=== PATIENT | male | born 1955 | race Caucasian/White ===

== ENCOUNTER → 2020-08-26 | Outpatient (CLI) | payer BC ==
[~2020-08-26] MED LIST: ALEN70TA60 PO; AMLO-187 PO; CELE200C PO; DOCU-153 PO; ESOM20CA PO; GABA-585 PO; HYDR12.575 PO; METH750T2 PO; OLME1TAB81 PO; TEST200V3 IM
--- NOTE | 2020-08-26 13:48 | EKG ---
[facility] [address] [place] [address] Test Date: 2020-08-26 Test Time: 13:35:03 Pat Name: STEPHEN VAZQUEZ Department: Room: Gender: Mainframe Applications Developer: [email or web address] Rivas : [id number] Requested By: GOVIND JOHNSON Order Number: [id number] Reading MD: Julio Esquivel MD Measurements Intervals [place] Rate: 73 P: 21 WI: 166 QRS: 44 QRSD: 104 T: 11 QT: 358 QTc: 398 Interpretive Statements SINUS RHYTHM Electronically Signed On 08-28-2020 8:28:01 CDT by Julio Esquivel MD
[2020-08-26 15:56] LABS: BASO % 0 % (0-3); EOS % 1 % (0-3); HEMATOCRIT 44.5 % (39.0-53.0); HEMOGLOBIN 14.9 g/dL (13.0-17.5); LYMPH # 0.9 x10^3/uL (1.0-4.8); LYMPH % 15 % (24-48); MEAN CORPUSCULAR HEMOGLOBIN 30 pg (25-35); MEAN CORPUSCULAR HGB CONC 33 g/dL (31-37); MEAN CORPUSCULAR VOLUME 88 fL (79-100); MONO # 0.6 x10^3/uL (0.0-1.1); MONO % 10 % (0-9); NEUT # 4.6 x10^3/uL (1.8-7.7); NEUT % 75 % (31-73); PLATELET COUNT 231 x10^3/uL (140-400); RED BLOOD COUNT 5.05 x10^6/uL (4.30-5.70); RED CELL DISTRIBUTION WIDTH 14.8 % (11.5-14.5); WHITE BLOOD COUNT 6.2 x10^3/uL (4.0-11.0)
[2020-08-26 16:14] LABS: PROTHROMBIN TIME PATIENT 13.6 SEC (11.7-14.0)
[2020-08-26 16:17] LABS: ALBUMIN 3.8 g/dL (3.4-5.0); ALBUMIN/GLOBULIN RATIO 1.3 (1.0-1.7); CALCIUM 8.7 mg/dL (8.5-10.1); CREATININE 1.1 mg/dL (0.7-1.3); GFR 67.4; POTASSIUM 4.2 mmol/L (3.5-5.1); TOTAL BILIRUBIN 0.7 mg/dL (0.2-1.0); TOTAL PROTEIN 6.7 g/dL (6.4-8.2)
--- NOTE | 2020-08-27 15:45 | PREOP HP ---
DATE OF SERVICE: 08/29/20 HISTORY OF PRESENT ILLNESS: The patient is a pleasant 65-year-old, who has trouble with low back pain and pain which radiates into both of his lower extremities. He complains of posterior lateral thigh pain as well as some pain in the inguinal regions. The right leg is more involved than the left. The problem has been present for years, but has slowly began to worsen. He says he has a constant 3/10 pain. When he sits, the pain is about 6/10. He feels walking tends to help him. He takes Celebrex and gabapentin. He has had chiropractic treatment for years, which used to help, but is no longer effective. PAST MEDICAL HISTORY: Arthritis, artificial joint, osteoporosis, hypertension. PAST SURGICAL HISTORY: Left leg surgery in 1974, left knee replacement in 2013, right hip replacement 2019. FAMILY HISTORY: Hypertension. SOCIAL HISTORY: Retired. . Denies substance abuse. Former smoker. Former alcohol drinker. Drinks soda and tea daily. Walks every day. ALLERGIES: PENICILLIN. CURRENT MEDICATIONS: Esomeprazole magnesium, olmesartan medoxomil, gabapentin, testosterone, alendronate sodium. REVIEW OF SYSTEMS: A 12-point review of systems was obtained and is noncontributory except for that mentioned above. PHYSICAL EXAMINATION: NEUROSURGERY EXAMINATION: GENERAL APPEARANCE: Alert, pleasant, no acute distress. HEAD: Normocephalic and atraumatic. SKIN: Warm and dry. MUSCULOSKELETAL: Lumbar paraspinal muscle bulk is normal, restricted range of motion of the lumbar spine, chfw-[id number] tenderness of the lower lumbar spine with palpation, normal range of motion of the lower extremities bilaterally. EXTREMITIES: No clubbing, cyanosis or edema. NEUROLOGIC: Alert and oriented x 3, normal recent and remote memory, strength 5/5 in bilateral lower extremities, sensory was intact to light touch in bilateral lower extremities except for decreased light touch involving the lateral thigh and leg on the right. Reflexes are trace and symmetric in the lower extremities bilaterally, negative straight leg raising bilaterally, normal gait. IMAGING: I reviewed a lumbar MRI scan from 07/17/2020. On that study, there are abnormalities at L4-L5 and L5-S1. At L5-S1, there is a grade 2 anterolisthesis with severe bilateral neural foraminal narrowing. At L4-L5 on the left, there is a large thickened facet with synovial cyst, which projects into the canal along with disc bulge. This is associated with lateral recess and foraminal narrowing on that side. ASSESSMENT/ PLAN: He has significant problems with his lower back. He has significant listhesis at L5-S1, combined with severe neural foraminal narrowing bilaterally combined with hypertrophic facet disease and disc bulging at L4-L5. I am recommending bilateral foraminal decompression at L5-S1, combined with decompressing the left side at L4-L5. I would combine this with posterior screw and aiden construct L4, L5 and S1, combined with posterolateral fusion. I discussed all this with him. I did outline the risk of surgery including use of pedicle screws. I spoke about the expected postoperative course. He understands. He would like to proceed. He failed to improve with lumbar epidural steroid injection. GOVIND JOHNSON MD DR: MIS/ld JOB#: [id number] / [id number] EYA
== END ==
LOC: SURGPAT 13:37
PROVIDERS: ATTEND Neurological Surgery
DX: Z01.812 Encounter for preprocedural laboratory examination (principal); I10 Essential (primary) hypertension; Z20.828 Contact with and (suspected) exposure to other viral communicable diseases
CPT/HCPCS: 80053; 82306; 85025; 85610; 85730; 87641; 93005; U0003

== ENCOUNTER 2020-08-29 06:09 | Inpatient (IN) | payer BC ==
[~2020-08-29] VITALS: Ht 185.4 cm; Wt 94.3 kg
[2020-08-29] VITALS (8 sets, daily range): BP systolic 105–131; BP diastolic 67–79
[~2020-08-29 06:09] MED LIST changes: +BACITRACIN 50,000 UNIT in IV NORMAL SALINE 1000ML BAG 1,000 ML IRR ONE; -DOCU-153 PO; -METH750T2 PO
[2020-08-29] MEDS ORDERED: ONDANSETRON PF 4 MG/2 ML VIAL. IV PRN (07:00)
[2020-08-29] MEDS ORDERED: LIDOCAINE 1% PF 2 ML VIAL. ID PRN (07:00)
[2020-08-29] MEDS ORDERED: HYDROmorphone 2 MG/ML VIAL IV PRN (07:00)
[2020-08-29] MEDS ORDERED: fentaNYL PF VIAL 100 MCG/2 ML VIAL IV PRN (07:00)
[2020-08-29] MEDS ORDERED: IV RINGERS,LACTATED 1000ML 1,000 ML IV SCH (07:00)
[2020-08-29] MEDS ORDERED: PROCHLORPERAZINE 10 MG/2 ML VIAL. IV PRN (07:00)
[2020-08-29] MEDS ORDERED: VANCOMYCIN 1GM IVPB FOR OMNI 250 ML IV PRN (07:00)
[2020-08-29] MEDS ORDERED: LIDOCAINE 1%/EPI 1:100,000 20 ML VIAL. ONE (07:19)
[2020-08-29] MEDS ORDERED: THROMBIN TOPICAL 20,000 UNIT SPRAY.SYRN KIT TP ONE (07:19)
[2020-08-29] MEDS ORDERED: KETOROLAC 60 MG/2 ML VIAL. ONE (07:19)
[2020-08-29] MEDS ORDERED: GELATIN SPONGE SIZE 100. ONE (07:19)
[2020-08-29] MEDS ORDERED: VANCOMYCIN 1GM IVPB FOR OMNI. ONE (08:00)
[2020-08-29] MEDS ORDERED: MIDAZOLAM HCL/PF 2 MG/2 ML VIAL. ONE (08:11)
[2020-08-29] MEDS ORDERED: DEXAMETHASONE SOD PHOS 20 MG/5 ML VIAL. ONE (08:11)
[2020-08-29] MEDS ORDERED: SUCCINYLCHOLINE 200 MG/10 ML VIAL. ONE (08:11)
[2020-08-29] MEDS ORDERED: ROCURONIUM 50 MG/5 ML VIAL. ONE (08:11)
[2020-08-29] MEDS ORDERED: ONDANSETRON PF 4 MG/2 ML VIAL. ONE (08:11)
[2020-08-29] MEDS ORDERED: PROPOFOL 0 ML IV ONE (08:11)
[2020-08-29] MEDS ORDERED: PROPOFOL 10 MG/ML (20ML) VIAL. IV ONE (08:11)
[2020-08-29] MEDS ORDERED: LIDOCAINE 2% PF 5 ML VIAL. ONE (08:11)
[2020-08-29] MEDS ORDERED: fentaNYL PF VIAL 100 MCG/2 ML VIAL ONE ×3 (08:12→18:11)
[2020-08-29] MEDS ORDERED: PHENYLEPHRINE 10 MG/ML VIAL. ONE ×2 (08:12→14:57)
[2020-08-29] MEDS ORDERED: REMIFENTANIL 2 MG VIAL. IV ONE ×2 (08:16→12:22)
[2020-08-29] MEDS ORDERED: PROPOFOL 100 ML IV ONE ×2 (08:18→12:03)
--- NOTE | 2020-08-29 09:42 | PREOP HP ---
DATE OF SERVICE: Arthur Orta dictating for Dr. Darrel Johnson. HISTORY OF PRESENT ILLNESS: The patient is a pleasant 65-year-old, who has trouble with low back pain and pain which radiates into both of his lower extremities. He complains of posterior lateral thigh pain as well as some pain in the inguinal regions. The right leg is more involved than the left. The problem has been present for years, but has slowly began to worsen. He says he has a constant 3/10 pain. When he sits, the pain is about 6/10. He feels walking tends to help him. He takes Celebrex and gabapentin. He has had chiropractic treatment for years, which used to help, but is no longer effective. PAST MEDICAL HISTORY: Arthritis, artificial joint, osteoporosis, hypertension. PAST SURGICAL HISTORY: Left leg surgery in 1974, left knee replacement in 2013, right hip replacement 2019. FAMILY HISTORY: Hypertension. SOCIAL HISTORY: Retired. . Denies substance abuse. Former smoker. Former alcohol drinker. Drinks soda and tea daily. Walks every day. ALLERGIES: PENICILLIN. CURRENT MEDICATIONS: Esomeprazole magnesium, olmesartan medoxomil, ____, gabapentin, testosterone, alendronate sodium. REVIEW OF SYSTEMS: A 12-point review of systems was obtained and is noncontributory except for that mentioned above. PHYSICAL EXAMINATION: NEUROSURGERY EXAMINATION: GENERAL APPEARANCE: Alert, pleasant, no acute distress. HEAD: Normocephalic and atraumatic. SKIN: Warm and dry. MUSCULOSKELETAL: Lumbar paraspinal muscle bulk is normal, restricted range of motion of the lumbar spine, esiu-ow-vkwjqzzf tenderness of the lower lumbar spine with palpation, normal range of motion of the lower extremities bilaterally. EXTREMITIES: No clubbing, cyanosis or edema. NEUROLOGIC: Alert and oriented x 3, normal recent and remote memory, strength 5/5 in bilateral lower extremities, sensory was intact to light touch in bilateral lower extremities except for decreased light touch involving the lateral thigh and leg on the right. Reflexes are trace and symmetric in the lower extremities bilaterally, negative straight leg raising bilaterally, normal gait. IMAGING: Reviewed. I reviewed a lumbar MRI scan from 07/17/2020. On that study, there are abnormalities at L4-L5 and L5-S1. At L5-S1, there is a grade 2 anterolisthesis with severe bilateral neural foraminal narrowing. At L4-L5 on the left, there is a large thickened facet with synovial cyst, which projects into the canal along with disk bulge. This is associated with lateral recess and foraminal narrowing on that side. ASSESSMENT: 1. Spondylolisthesis, lumbosacral region. 2. Spinal stenosis, lumbar region with neurogenic claudication. 3. Radiculopathy, lumbar region. 4. Other bursal cyst, unspecified site. PLAN: He has significant problems with his lower back. He has significant listhesis at L5-S1, combined with severe neural foraminal narrowing bilaterally combined with hypertrophic facet disease and disk bulging at L4-L5. I am recommending bilateral foraminal decompression at L5-S1, combined with decompressing the left side at L4-L5. I would combine this with posterior screw and aiden construct L4, L5 and S1, combined with posterolateral fusion. I discussed all this with him. I did outline the risk of surgery including use of pedicle screws. I spoke about the expected postoperative course. He understands. He would like to proceed. We will make the arrangements next week and he will contact us with ____. DARREL JOHNSON MD DR: MIS/ld JOB#: [id number] / [id number]
--- NOTE | 2020-08-29 11:02 | RAD ---
STUDY: CT of lumbar spine without contrast INDICATION: Lumbar stenosis. Brain lab. COMPARISON: None TECHNIQUE: Axial CT imaging of the lumbar spine without contrast per brain lab protocol. Coronal and sagittal reformats were obtained. One or more of the following individualized dose reduction techniques were utilized for this examination: 1. Automated exposure control 2. Adjustment of the mA and/or kV according to patient size 3. Use of iterative reconstruction technique. FINDINGS: There is transitional anatomy at the lumbosacral junction. For the purpose of this report, the level of the spondylolisthesis is labeled L5-S1. There are tiny accessory ribs at L1. No acute fracture. T12-L1 through L3-L4: No significant disc herniation, or canal or foraminal narrowing. Mild facet arthrosis. L4-L5: There is mild canal narrowing at L4-L5 related to small disc bulge and moderate facet arthrosis with ligamentum flavum thickening. Mild left foraminal narrowing. Moderate facet arthrosis.. L5-S1: There are chronic bilateral L5 pars defects with 1.3 cm anterolisthesis of L5 on S1. There is severe disc space narrowing with uncovering of a disc bulge and large posterior osteophytes at L5. There are bulky bridging osteophytes on the left. This results in severe bilateral foraminal narrowing, greater on the right. No canal narrowing. Moderate facet arthrosis. There is degenerative joint disease of the sacroiliac joints, greater on the left. A right hip prosthesis is noted. There is mild calcified aortic atherosclerosis. 1.1 cm exophytic right renal cyst with greater than simple fluid density, indeterminate. IMPRESSION: 1. Chronic bilateral L5 spondylolysis with grade 2 spondylolisthesis, severe degenerative disc disease, and severe bilateral foraminal narrowing at L5-S1. 2. 1.1 cm indeterminate right renal cyst. Ultrasound could be obtained to further evaluate. Electronically signed by: Eunice Noel MD (08/29/2020 10:59 AM) [id number]
[2020-08-29] MEDS ORDERED: DESFLURANE > 120 MINUTES IH ONE (14:15)
[2020-08-29] MEDS ORDERED: REMIFENTANIL 1 MG VIAL. IV ONE (14:56)
[2020-08-29] MEDS ORDERED: PROPOFOL 50 ML IV ONE (16:06)
[2020-08-29] MEDS ORDERED: PHENYLEPHRINE in 0.9% NACL PF 1 MG/10 ML SYRINGE. IV ONE (16:15)
[2020-08-29] MEDS ORDERED: ePHEDrine PF IN SALINE 50 MG/10 ML SYRINGE. IV ONE (16:25)
[2020-08-29] MEDS ORDERED: MAGNESIUM HYDROXIDE 2,400 MG/30 ML ORAL.SUSP. PO PRN (17:30)
[2020-08-29] MEDS ORDERED: diphenhydrAMINE HCL 25 MG CAPSULE PO PRN (17:30)
[2020-08-29] MEDS ORDERED: CALCIUM CARBONATE 500 MG TAB.CHEW PO PRN (17:30)
[2020-08-29] MEDS ORDERED: 0.9 % SODIUM CHLORIDE 10 ML DISP.SYRIN. IV PRN (17:30)
[2020-08-29] MEDS ORDERED: oxyCODONE/APAP 5/325 1 TAB TABLET PO PRN ×2 (17:30)
[2020-08-29] MEDS ORDERED: fentaNYL PF VIAL 100 MCG/2 ML VIAL IVP PRN (17:30)
[2020-08-29] MEDS ORDERED: MAG HYDROX/ALUMINUM HYD/SIMETH 30 ML ORAL.SUSP PO PRN (17:30)
[2020-08-29] MEDS ORDERED: ACETAMINOPHEN 325 MG TABLET. PO PRN (17:30)
[2020-08-29] MEDS ORDERED: ONDANSETRON PF 4 MG/2 ML VIAL. IVP PRN (17:30)
[2020-08-29] MEDS ORDERED: NALOXONE 0.4 MG/ML VIAL. IV PRN (17:30)
[2020-08-29] MEDS ORDERED: METHOCARBAMOL 750 MG TABLET PO PRN (17:30)
[2020-08-29] MEDS: fentaNYL PF VIAL 100 MCG/2 ML VIAL IV PRN ×2 (18:19→18:33)
[2020-08-29] MEDS ORDERED: MORPHINE SULFATE 2 MG/ML VIAL. ONE (18:33)
[2020-08-29] MEDS: MORPHINE SULFATE 2 MG/ML VIAL. IV PRN ×2 (18:36→18:51)
[2020-08-29] MEDS ORDERED: HYDROmorphone 2 MG/ML VIAL ONE (18:55)
--- NOTE | 2020-08-29 19:30 | NUR ---
Admit from PACU s/p lumbar sx and synovial cyst removal. ENRIQUE. 2 surgical dressings D/I.
[2020-08-29] MEDS ORDERED: POTASSIUM CL 20MEQ D5-0.45NACL 1,000 ML IV SCH (20:00)
[2020-08-29] MEDS ORDERED: VANCOMYCIN 1 GM in IV NORMAL SALINE 250ML 250 ML IV ONE (21:30)
[2020-08-29] MEDS: GABAPENTIN 100 MG CAPSULE. PO SCH (21:38)
[2020-08-29] MEDS: DOCUSATE SODIUM 100 MG CAPSULE. PO SCH (21:38)
--- NOTE | 2020-08-30 03:31 | NUR ---
Assisted to BSC, voided 300cc. No further nausea. IVf DC'd. Stood at bedside to ambulate but then declined because "I'm too dizzy." SBP 122. LSO brace order faxed to [facility].
[2020-08-30 03:32] VITALS: BP 122/78
--- NOTE | 2020-08-30 03:34 | NUR ---
C/o "sore and red" area across nipple line and chest. Left pec appears "swollen". Ice pack applied. "It hurts worse than my back." Refuses offered pain meds, "last time the narcotics made me really constipated."
[2020-08-30 06:32] VITALS: BP 115/71
[2020-08-30] MEDS ORDERED: PANTOPRAZOLE 40 MG TABLET.DR. PO SCH (07:30)
[2020-08-30] MEDS: GABAPENTIN 100 MG CAPSULE. PO SCH (07:53)
[2020-08-30] MEDS: DOCUSATE SODIUM 100 MG CAPSULE. PO SCH (07:53)
[2020-08-30] MEDS ORDERED: [UNRECOGNIZED DRUG - OTHER] PO SCH (09:00)
[2020-08-30] MEDS ORDERED: hydroCHLOROthiazide 12.5 MG CAPSULE PO SCH (09:00)
[2020-08-30] MEDS ORDERED: OLMESARTAN PO SCH (09:00)
[2020-08-30] MEDS ORDERED: LOSARTAN POTASSIUM 50 MG TABLET. PO SCH (09:00)
[2020-08-30] MEDS ORDERED: HYDROCHLOROTHIAZIDE PO SCH (09:00)
[2020-08-30 11:16] VITALS: BP 137/87
[2020-08-30] MEDS ORDERED: METH750T2 PO (11:59)
[2020-08-30] MEDS ORDERED: DOCU-153 PO (11:59)
--- NOTE | 2020-08-30 12:02 | DISCH ---
DISCHARGE INSTRUCTIONS Condition on Discharge Condition on Discharge: Stable Activity After Discharge Activity Instructions for Disc: Activity as tolerated, Avoid exertion, Prog ressive ambulation Other activity instructions: no driving for a week Bathing Instructions: Shower-keep dressing dry, No Tub Bath until see Lifting Instructions after Dis: No heavy lifting, No pulling or pushing, Do not lift >10 pounds Exercise Instruction after Dis: Walk 10 min, 3 x per day Weight Bearing Status after Di: Full weight bearing Diet after Discharge Diet after Discharge: Regular Diet Texture: Regular Swallowing Supervision: None needed Wound Incision Care Wound/Incision Care: Ice to area for comfort, Change dressing, May get incision wet Other wound/incision instructi: may remove dressing in 48 hours if incision dry, keep steri strips on Wound Care Equipment: Dressings Follow-Up Follow Up With: F/U with Dr. Johnson's nurse in 10-14 days [phone] Treatment/Equipment after DC Adaptive Equipment Issued: None, Brace/splint GOVIND JOHNSON MD Aug 30, 2020 12:02
--- NOTE | 2020-08-30 12:45 | NUR ---
Discharge instructions given with prescriptions. Answered questions and concerns. Verbalized understanding. Dressings supplies given with instructions. Received LSO brace and is wearing it. Pt discharged home. Escorted out by w/c accompanied by brother.
--- NOTE | 2020-08-30 12:57 | PDOC ---
PROGRESS NOTES Date of Service DATE: 08/30/20 TIME: 12:55 Subjective Subjective POD #1 S/P Lumbar decompression and fusion L4-5, L5-S1 legs feel much better has been ambulating in halls not taking pain medication Objective Objective Vital Signs Date Time Temp Pulse Resp B/P (MAP) Pulse Ox O2 Delivery O2 Flow Rate FiO2 08/30/20 11:16 97.9 101 20 137/87 (104) 96 Room Air 97.9 08/29/20 23:18 3.0 Intake and Output 08/30/20 07:00 Intake Total 6435 ml Output Total 1050 ml Balance 5385 ml Intake Oral 1770 ml IV Total 3950 ml Other 715 ml Output Urine Total 900 ml Stool Total 0 ml Estimated Blood Loss 150 ml Physical Exam General: Alert, Oriented X3, Cooperative, No acute distress MUSCULOSKELETAL: Other (ENRIQUE) Neck: Other Skin: Other (dressing dry and intact, changed) Plan Plan of Care dc home f/u 2 weeks Comment Review of Relevant I have reviewed the following items dalia (where applicable) has been applied. Medications Current Medications Bacitracin 00086 unit/Sodium Chloride 1,000 ml @ 1,000 mls/hr 1X ONCE IRR Last administered on 08/29/20at 10:54; Start 08/29/20 at 06:00; Stop 08/29/20 at 06:59; Status DC Ondansetron HCl (Zofran) 4 mg PRN Q6HRS PRN IV NAUSEA/VOMITING; Start 08/29/20 at 07:00; Stop 08/30/20 at 06:59; Status DC Fentanyl Citrate (Fentanyl 2ml Vial) 25 mcg PRN Q5MIN PRN IV MILD PAIN 1-3 Last administered on 08/29/20at 18:33; Start 08/29/20 at 07:00; Stop 08/30/20 at 06:59; Status DC Fentanyl Citrate (Fentanyl 2ml Vial) 50 mcg PRN Q5MIN PRN IV MODERATE TO SEVERE PAIN Last administered on 08/29/20at 18:25; Start 08/29/20 at 07:00; Stop 08/30/20 at 06:59; Status DC Morphine Sulfate (Morphine Sulfate) 1 mg PRN Q10MIN PRN IV SEVERE PAIN 7-10 Last administered on 08/29/20at 18:51; Start 08/29/20 at 07:00; Stop 08/30/20 at 06:59; Status DC Ringer's Solution 1,000 ml @ 30 mls/hr Q24H IV Last administered on 08/29/20at 07:01; Start 08/29/20 at 07:00; Stop 08/29/20 at 18:59; Status DC Lidocaine HCl (Xylocaine-Mpf 1% 2ml Vial) 2 ml PRN 1X PRN ID PRIOR TO IV START; Start 08/29/20 at 07:00; Stop 08/30/20 at 06:59; Status DC Hydromorphone HCl (Dilaudid) 0.5 mg PRN Q10MIN PRN IV SEV PAIN, Second choice Last administered on 08/29/20at 18:58; Start 08/29/20 at 07:00; Stop 08/30/20 at 06:59; Status DC Prochlorperazine Edisylate (Compazine) 5 mg PACU PRN PRN IV NAUSEA, MRX1; Start 08/29/20 at 07:00; Stop 08/30/20 at 06:59; Status DC Vancomycin HCl 250 ml @ 250 mls/hr PREOP PRN PRN IV PREOP Last administered on 08/29/20at 09:41; Start 08/29/20 at 07:00; Stop 08/30/20 at 12:13; Status DC Gelatin (Gelfoam Size 100) 1 each STK-MED ONCE .ROUTE Last administered on 08/29/20at 10:54; Start 08/29/20 at 07:19; Stop 08/29/20 at 07:19; Status DC Ketorolac Tromethamine (Toradol Im) 60 mg STK-MED ONCE .ROUTE Last administered on 08/29/20at 10:54; Start 08/29/20 at 07:19; Stop 08/29/20 at 07:19; Status DC Lidocaine/ Epinephrine (LIDOCAINE 1%-EPI 1:100,000 Multi-Dose) 20 ml STK-MED ONCE .ROUTE Last administered on 08/29/20at 10:54; Start 08/29/20 at 07:19; Stop 08/29/20 at 07:19; Status DC Thrombin 20,000 unit STK-MED ONCE TP Last administered on 08/29/20at 10:54; Start 08/29/20 at 07:19; Stop 08/29/20 at 07:19; Status DC Propofol (Diprivan) 200 mg STK-MED ONCE IV ; Start 08/29/20 at 08:11; Stop 1 at 08:11; Status DC Dexamethasone Sodium Phosphate (Decadron) 20 mg STK-MED ONCE .ROUTE ; Start 08/29/20 at 08:11; Stop 08/29/20 at 08:11; Status DC Lidocaine HCl (Lidocaine Pf 2% Vial) 5 ml STK-MED ONCE .ROUTE ; Start 08/29/20 at 08:11; Stop 08/29/20 at 08:11; Status DC Ondansetron HCl (Zofran) 4 mg STK-MED ONCE .ROUTE ; Start 08/29/20 at 08:11; Stop 08/29/20 at 08:11; Status DC Propofol 0 ml @ As Directed STK-MED ONCE IV ; Start 08/29/20 at 08:11; Stop 08/29/20 at 08:11; Status DC Succinylcholine Chloride (Anectine) 200 mg STK-MED ONCE .ROUTE ; Start 08/29/20 at 08:11; Stop 08/29/20 at 08:11; Status DC Rocuronium Woodruff (Zemuron) 50 mg STK-MED ONCE .ROUTE ; Start 08/29/20 at 08:11; Stop 08/29/20 at 08:11; Status DC Midazolam HCl (Versed) 2 mg STK-MED ONCE .ROUTE ; Start 08/29/20 at 08:11; Stop 08/29/20 at 08:11; Status DC Phenylephrine HCl (Kendell-Synephrine Inj) 10 mg STK-MED ONCE .ROUTE ; Start 08/29/20 at 08:12; Stop 08/29/20 at 08:12; Status DC Fentanyl Citrate (Fentanyl 2ml Vial) 100 mcg STK-MED ONCE .ROUTE ; Start 08/29/20 at 08:12; Stop 08/29/20 at 08:12; Status DC Remifentanil HCl (Ultiva) 2 mg STK-MED ONCE IV ; Start 08/29/20 at 08:16; Stop 08/29/20 at 08:16; Status DC Propofol 100 ml @ As Directed STK-MED ONCE IV ; Start 08/29/20 at 08:18; Stop 08/29/20 at 08:18; Status DC Vancomycin HCl (VANCO IVPB for OMNICELL) 1 gm STK-MED ONCE .ROUTE ; Start 08/29/20 at 08:00; Stop 08/29/20 at 09:01; Status DC Propofol 100 ml @ As Directed STK-MED ONCE IV ; Start 08/29/20 at 12:03; Stop 08/29/20 at 12:04; Status DC Remifentanil HCl (Ultiva) 2 mg STK-MED ONCE IV ; Start 08/29/20 at 12:22; Stop 08/29/20 at 12:22; Status DC Desflurane (Suprane) 90 ml STK-MED ONCE IH ; Start 08/29/20 at 14:15; Stop 08/29/20 at 14:15; Status DC Remifentanil HCl (Ultiva) 1 mg STK-MED ONCE IV ; Start 08/29/20 at 14:56; Stop 08/29/20 at 14:56; Status DC Phenylephrine HCl (Kendell-Synephrine Inj) 10 mg STK-MED ONCE .ROUTE ; Start 08/29/20 at 14:57; Stop 08/29/20 at 14:57; Status DC Fentanyl Citrate (Fentanyl 2ml Vial) 100 mcg STK-MED ONCE .ROUTE ; Start 08/29/20 at 15:23; Stop 08/29/20 at 15:24; Status DC Propofol 50 ml @ As Directed STK-MED ONCE IV ; Start 08/29/20 at 16:06; Stop 08/29/20 at 16:07; Status DC Phenylephrine HCl (PHENYLEPHRINE in 0.9% NACL PF) 1 mg STK-MED ONCE IV ; Start 08/29/20 at 16:15; Stop 08/29/20 at 16:16; Status DC Ephedrine Sulfate (ePHEDrine PF IN SALINE SYRINGE) 50 mg STK-MED ONCE IV ; Start 08/29/20 at 16:25; Stop 08/29/20 at 16:25; Status DC Gabapentin (Neurontin) 300 mg BID PO Last administered on 08/30/20at 07:53; Start 08/29/20 at 21:00; Stop 08/30/20 at 12:54; Status DC Testosterone Cypionate (Depo-Testosterone) 300 mg Q2WKS IM ; Start 09/12/20 at 09:00; Status UNV Non-Formulary Medication (Alendronate Sodium ) 70 mg WEEKLY PO ; Start 09/05/20 at 09:00; Status UNV Pantoprazole Sodium (Protonix) 40 mg DAILYAC PO Last administered on 08/30/20at 07:53; Start 08/30/20 at 07:30; Stop 08/30/20 at 12:54; Status DC Non-Formulary Medication (Olmesartan/ Hydrochlorothiazide (Olmesartan-Hctz 40- 12.5 mg Tab)) 1 each DAILY PO ; Start 08/30/20 at 09:00; Status UNV Fentanyl Citrate (Fentanyl 2ml Vial) 50 mcg PRN Q2HR PRN IVP PAIN; Start 08/29/20 at 17:30; Stop 08/30/20 at 12:54; Status DC Vancomycin HCl 1 gm/Sodium Chloride 250 ml @ 250 mls/hr 1X ONCE IV Last administered on 08/29/20at 21:38; Start 08/29/20 at 21:30; Stop 08/29/20 at 22:29; Status DC Acetaminophen (Tylenol) 650 mg PRN Q6HRS PRN PO MILD PAIN / TEMP > 100.3'F; Start 08/29/20 at 17:30; Stop 08/30/20 at 12:54; Status DC Al Hydroxide/Mg Hydroxide (Mylanta Plus Xs) 30 ml PRN Q3HRS PRN PO HEARTBURN / GAS; Start 08/29/20 at 17:30; Stop 08/30/20 at 12:54; Status DC Calcium Carbonate/ Glycine (Tums) 500 mg PRN Q3HRS PRN PO INDIGESTION; Start 08/29/20 at 17:30; Stop 08/30/20 at 12:54; Status DC Diphenhydramine HCl (Benadryl) 25 mg PRN Q6HRS PRN PO ITCHING; Start 08/29/20 at 17:30; Stop 08/30/20 at 12:54; Status DC Naloxone HCl (Narcan) 0.1 mg PRN Q2MIN PRN IV SEE COMMENTS; Start 08/29/20 at 17:30; Stop 08/30/20 at 12:54; Status DC Sodium Chloride (Normal Saline Flush) 3 ml QSHIFT PRN IV AFTER MEDS AND BLOOD DRAWS; Start 08/29/20 at 17:30; Stop 08/30/20 at 12:54; Status DC Potassium Chloride/Dextrose/ Sod Cl 1,000 ml @ 75 mls/hr [id number] IV Last administered on 08/29/20at 19:49; Start 08/29/20 at 20:00; Stop 08/30/20 at 12:54; Status DC Oxycodone/ Acetaminophen (Percocet 5/325) 1 tab PRN Q4HRS PRN PO MODERATE PAIN; Start 08/29/20 at 17:30; Stop 08/30/20 at 12:54; Status DC Oxycodone/ Acetaminophen (Percocet 5/325) 2 tab PRN Q4HRS PRN PO SEVERE PAIN; Start 08/29/20 at 17:30; Stop 08/30/20 at 12:54; Status DC Methocarbamol (Robaxin) 750 mg PRN TID PRN PO MUSCLE SPASMS; Start 08/29/20 at 17:30; Stop 08/30/20 at 12:54; Status DC Docusate Sodium (Colace) 100 mg BID PO Last administered on 08/30/20at 07:53; Start 08/29/20 at 21:00; Stop 08/30/20 at 12:54; Status DC Magnesium Hydroxide (Milk Of Magnesia) 2,400 mg PRN Q12HR PRN PO CONSTIPATION; Start 08/29/20 at 17:30; Stop 08/30/20 at 12:54; Status DC Ondansetron HCl (Zofran) 4 mg PRN Q6HRS PRN IVP NAUESA, 1ST CHOICE Last a dministered on 08/29/20at 19:49; Start 08/29/20 at 17:30; Stop 08/30/20 at 12:54; Status DC Losartan Potassium (Cozaar) 100 mg DAILY PO Last administered on 08/30/20at 07:54; Start 08/30/20 at 09:00; Stop 08/30/20 at 12:54; Status DC Hydrochlorothiazide (Microzide) 12.5 mg DAILY PO Last administered on 08/30/20at 07:53; Start 08/30/20 at 09:00; Stop 08/30/20 at 12:54; Status DC Fentanyl Citrate (Fentanyl 2ml Vial) 100 mcg STK-MED ONCE .ROUTE ; Start 08/29/20 at 18:11; Stop 08/29/20 at 18:11; Status DC Morphine Sulfate (Morphine Sulfate) 2 mg STK-MED ONCE .ROUTE ; Start 08/29/20 at 18:33; Stop 08/29/20 at 18:33; Status DC Hydromorphone HCl (Dilaudid) 2 mg STK-MED ONCE .ROUTE ; Start 08/29/20 at 18:55; Stop 08/29/20 at 18:56; Status DC Active Scripts Active Dok (Docusate Sodium) 100 Mg Capsule 100 Mg PO BID Methocarbamol 750 Mg Tablet 750 Mg PO PRN TID PRN Reported Alendronate Sodium 70 Mg Tablet 70 Mg PO WEEKLY Testosterone Cypionate 200 Mg/1 Ml Vial 300 Mg IM Q2WKS Olmesartan-Hctz 40-12.5 mg Tab (Olmesartan/Hydrochlorothiazide) 1 Each Tablet 1 Each PO DAILY Gabapentin (Gabapentin) 100 Mg Capsule 300 Mg PO BID Nexium Capsule (Esomeprazole Magnesium) 20 Mg Capsule.dr 40 Mg PO DAILY Vitals/I & O Vital Sign - Last 24 Hours 08/29/20 08/29/20 08/29/20 08/29/20 17:36 17:50 17:53 18:09 Temp 99.5 99.5 99.5 99.5 99.5 99.5 Pulse 130 121 110 Resp 16 17 20 B/P (MAP) 93/53 90/59 81/49 Pulse Ox 94 94 91 O2 Delivery Simple Mask Mask Simple Mask Nasal Cannula O2 Flow Rate 6 6 6 4 08/29/20 08/29/20 08/29/20 08/29/20 18:19 18:23 18:25 18:33 Temp 99.5 99.5 Pulse 106 Resp 18 20 B/P (MAP) 91/55 Pulse Ox 91 96 91 91 O2 Delivery Nasal Cannula Nasal Cannula Nasal Cannula Nasal Cannula O2 Flow Rate 4.0 4.0 4.0 4.0 08/29/20 08/29/20 08/29/20 08/29/20 18:36 18:38 18:51 18:53 Temp 99.5 99.5 99.5 99.5 Pulse 100 103 Resp 20 20 20 21 B/P (MAP) 88/52 102/63 Pulse Ox 93 91 95 96 O2 Delivery Nasal Cannula Nasal Cannula Simple Mask Simple Mask O2 Flow Rate 4.0 4.0 8.0 8.0 08/29/20 08/29/20 08/29/20 08/29/20 18:58 19:08 19:30 19:45 Temp 97.5 98.6 97.5 98.6 Pulse 105 107 101 Resp 20 20 18 18 B/P (MAP) 99/61 105/69 (81) 111/79 (90) Pulse Ox 95 95 95 96 O2 Delivery Nasal Cannula Nasal Cannula Nasal Cannula Nasal Cannula O2 Flow Rate 8.0 4 4.0 3.0 08/29/20 08/29/20 08/29/20 08/29/20 20:00 20:00 20:15 20:45 Pulse 100 99 101 Resp 18 18 18 B/P (MAP) 112/71 (85) 110/68 (82) 111/67 (82) Pulse Ox 96 96 94 O2 Delivery Nasal Cannula Nasal Cannula Nasal Cannula O2 Flow Rate 4.0 3.0 3.0 3.0 08/29/20 08/29/20 08/29/20 08/30/20 21:15 22:21 23:18 03:32 Temp 99.0 99.0 Pulse 101 95 99 101 Resp 18 18 18 B/P (MAP) 119/77 (91) 131/78 (95) 120/76 (91) 122/78 (93) Pulse Ox 96 92 96 94 O2 Delivery Nasal Cannula Room Air Nasal Cannula Room Air O2 Flow Rate 3.0 3.0 08/30/20 08/30/20 08/30/20 08/30/20 06:32 07:40 07:54 11:16 Temp 98.9 97.9 98.9 97.9 Pulse 103 96 101 Resp 20 B/P (MAP) 115/71 (86) 123/78 137/87 (104) Pulse Ox 92 96 O2 Delivery Room Air Room Air Room Air Intake and Output 08/29/20 08/29/20 08/30/20 15:00 23:00 07:00 Intake Total 4220 ml 2215 ml Output Total 750 ml 300 ml Balance 3470 ml 1915 ml Justifications for Admission Other Justification GOVIND JOHNSON MD Aug 30, 2020 12:57
--- NOTE | 2020-09-02 18:08 | PATHOLOGY ---
[facility] Accession Number: [id number] . 01 Material submitted: . vertebral column - LUMBAR DECOMPRESSION . 01 Clinical history: . LUMBER SYNOVIAL CYST, SPONDYLOLTHESIS STENOSIS . 02 Diagnosis: Segments of fibrocartilaginous, adipose, and skeletal muscle tissue and bone, lumbar decompression: - Degenerative changes of fibrocartilaginous tissue. (JPM:bid manager; 09/02/2020) MBR 09/02/2020 1541 Local . 02 Comment: There is no evidence of an acute inflammatory process or malignancy. (JPM:sofie; 09/02/2020) . 02 Electronically signed: . Chuck Ferrell MD, Pathologist NPI- [id number] . 01 Gross description: . Received in formalin labeled "Rich Ponce, lumbar decompression" is a 6.5 x 5.4 x 1.5 cm aggregate of price-brown and price-white rubbery soft tissue and gritty bone. [employer] Sales Representative tissue is submitted in cassette A1 following decalcification. ([facility] [place]; 09/01/2020) [facility] 09/02/2020 1539 Local . 02 Pathologist provided ICD-10: M71.38, M48.00 . 02 CPT . 946335, [id number] Specimen Comment: A courtesy copy of this report has been sent to [phone], [phone] Specimen Comment: [id number] Specimen Comment: Report sent to DR JOHNSON / DR JAMES Performed at: 01 [facility] [address], [place], [place] [id number] MD Nik Pike MD Phone: [phone] Performed at: 02 [facility] [address], [place] [id number] MD Chuck Ferrell MD Phone: [phone]
--- NOTE | 2020-09-03 16:34 | OP ---
DATE OF SURGERY: 08/29/2020 PREOPERATIVE DIAGNOSES: 1. Spondylolisthesis, grade 2, L5-S1 with foraminal and lateral recess narrowing bilaterally. 2. Hypertrophic facet with synovial cyst projecting into the canal with lateral recess narrowing and foraminal narrowing L4-L5, left. OPERATION PERFORMED: 1. Bilateral hemilaminotomy with decompression of dura and nerve root extending into the foramen, L5-S1. 2. Left hemilaminotomy with decompression of dura and nerve root, L4-L5. The surgery was then combined with posterior instrumentation L4, L5, S1; posterolateral fusion, L4, L5, S1. STRIPE MATCHER: GEORGE Dutta assisted with all aspects of the surgery. The surgery was done with bone marrow aspiration, fluoroscopy, microscopic dissection, BrainLAB guidance as well as multimodality neurophysiologic monitoring. OPERATIVE INDICATIONS: The patient is a pleasant 65-year-old man who developed intractable back and bilateral leg pain, the right side is more involved than the left with regard to his pain. He failed conservative measures and had the above-mentioned findings on imaging studies. I recommended lumbar surgery. I spoke with him about the surgery, the risks, the technique and the expected postoperative course, and he wished to go ahead. DESCRIPTION OF PROCEDURE: Following general endotracheal anesthesia, the patient was positioned prone on the Ariel table. Lumbar region prepped and draped in standard fashion. DRU hose and AV impulse boots were applied for DVT prophylaxis. The microscope was draped. Fluoroscopy was draped and brought into the field. Monitoring was established. Vancomycin 1 gram was given less than 1 hour prior to initiation of the surgery. The pins were placed into the left iliac crest and the BrainLAB system was initialized. I then made a midline incision extending from upper L4 to inferior S1. I dissected down through skin and subcutaneous tissue, reflected the paraspinal muscles and then beginning on the left side, I brought in the microscope and drilled generous laminotomies extending out to the proximal foramen and performed partial foraminotomies at L4 and L5. I trimmed away very thickened ligamentum flavum and fully decompressed the dura and exiting root. At this time, using anatomic landmarks as well as BrainLAB system, drilled into the posterior aspect of the pedicles of L4, L5 and S1, sounded down with the black ball and ball tip probe using stimulated EMG monitoring followed by tap. I did excoriate the transverse processes and lateral facets and aspirated 20 mL of bone marrow from the left iliac crest and mixing this with allograft bone, packed this into the gutter. I then placed pedicle screws of 6.5 using the Republic system. Following this, then I placed the aiden and nuts and this did not torque the system. I went to the right side then and in a similar fashion, exposed L4, L5 and S1. I did lay fusion bone in the lateral gutter and sounded then drilled the pedicles of L4, L5 and S1 in a similar fashion, again using electrophysiologic monitoring without difficulty. I used a high speed air drill to bur down a generous hemilaminotomy and decompress the dura and the exiting root and performed partial foraminotomy and proximal foraminal decompression. I then explored these regions and I felt that the roots were very free. I placed Republic screws then into L4, L5 and S1 after I had excoriated the transverse processes, lateral facets and packed allograft bone. Once the screws were placed in, I attached the rods and torqued the systems bilaterally. I obtained fluoroscopic images, which looked quite good. I irrigated with antibiotic solution. I felt the surgery went very well. I closed the wound in layers with absorbable suture. The skin was closed with 4-0 subcuticular stitch. Again, I was quite pleased with the surgery on patient. GOVIND JOHNSON MD DR: MIS/ld JOB#: [id number] / [id number]
[2020-09-05] MEDS ORDERED: NON FORMULARY ITEM (Alendronate Sodium 70 MG) PO SCH (09:00)
[2020-09-12] MEDS ORDERED: TESTOSTERONE CYPIONATE 200 MG/ML VIAL. IM SCH (09:00)
== END 2020-08-30 12:45 | disposition home or self-care (01) | DRG 460 ==
LOC: OPSVCIP 06:09 → 4 SOUTHEST 18:10
PROVIDERS: ADMIT Neurological Surgery; ATTEND Neurological Surgery
PROC: 0SG30K1 Fusion of Lumbosacral Joint with Nonautologous Tissue Substitute, Posterior Approach, Posterior Column, Open Approach (ICD-10-PCS; 2020-08-29)
PROC: 01NB0ZZ Release Lumbar Nerve, Open Approach (ICD-10-PCS; 2020-08-29)
PROC: 01NR0ZZ Release Sacral Nerve, Open Approach (ICD-10-PCS; 2020-08-29)
PROC: 0SG00K1 Fusion of Lumbar Vertebral Joint with Nonautologous Tissue Substitute, Posterior Approach, Posterior Column, Open Approach (ICD-10-PCS; principal; 2020-08-29 08:30)
DX: M48.062 Spinal stenosis, lumbar region with neurogenic claudication (principal); I10 Essential (primary) hypertension; M43.10 Spondylolisthesis, site unspecified; M54.16 Radiculopathy, lumbar region; M81.0 Age-related osteoporosis without current pathological fracture; Z82.49 Family history of ischemic heart disease and other diseases of the circulatory system; Z87.891 Personal history of nicotine dependence; Z96.641 Presence of right artificial hip joint; Z96.652 Presence of left artificial knee joint; M19.90 Unspecified osteoarthritis, unspecified site; Z88.0 Allergy status to penicillin; M71.30 Other bursal cyst, unspecified site; Z20.828 Contact with and (suspected) exposure to other viral communicable diseases
CPT/HCPCS: 36415; 72131; 76000; 86850; 86900; 86901; J0330; J1100; J1170; J1885; J2250; J2270; J2370; J2405; J2704; J3010; J3370; J3480; J3490; J7030; J7050; J7120; 97116-GP; 97530-GP; G0378